=== PATIENT | female | born 1960 | race Caucasian/White ===

== ENCOUNTER 2020-07-14 09:09 | Inpatient (IN) | payer OTHER, SELFPAY ==
[2020-07-14] VITALS (9 sets, daily range): BP systolic 125–156; BP diastolic 63–88; PULSE 84–102; RESP 20–33; TEMP 36.6–37.4; O2SAT 90–97; BMI 40.2
--- NOTE | 2020-07-14 09:32 | XR_ITS ---
EXAMINATION: XR CHEST CLINICAL INFORMATION: Covid positive. Chest pain and shortness of breath. COMPARISON: Previous chest x-rays most recent November 2016 TECHNIQUE: Frontal view of the chest was obtained. FINDINGS: The lung volumes are low. The cardiac and mediastinal contours are unremarkable. There is bilateral airspace disease suggestive of a pneumonia, greatest in the peripheral right lung and left perihilar region and left lung base. There is no pleural effusion or pneumothorax. Visualized bony structures are unremarkable. XR/XR chest 1V IMPRESSION: Low lung volumes and bilateral airspace disease suggestive of pneumonia.
[2020-07-14] MEDS: 0.9 % Sodium Chloride 1,000 ML 999 ML IV (09:46)
[2020-07-14 09:54] LABS: MANUAL DIFF FLAG NO
[2020-07-14] MEDS: cefTRIAXone sodium 1 GM in 0.9 % Sodium Chloride 100 ML IV (09:55)
[2020-07-14 09:56] LABS: Basophils Percent Auto 0.1 % (0-2); Hematocrit 40.8 % (37-47); Hemoglobin 12.6 g/dl (12.0-16.0); Imm Gran Abs Auto 0.03 X10*3/uL (0.00-0.03); Imm Gran Pct Auto 0.4 % (0.0-0.4); Lymphocytes Absolute Auto 1.1 X10*3/uL (1.2-4.9); Lymphocytes Percent Auto 14.2 % (20-40); Mean Corpuscular HGB Conc 30.9 g/dl (31.0-35.0); Mean Platelet Volume 10.8 fL (9.4-12.3); Monocytes Absolute Auto 0.5 X10*3/uL (0.1-1.2); Monocytes Percent Auto 5.9 % (2-11); Neutrophils Absolute Auto 6.2 X10*3/uL (2.0-8.3); Neutrophils Percent Auto 79.4 % (45-73); Platelet Count 263 X10*3/uL (160-400); Red Blood Count 5.04 X10*6/uL (4.20-5.50); Red Cell Distribution Width 15.2 % (11.0-16.0); White Blood Count 7.8 X10*3/uL (4.8-10.8)
[2020-07-14 10:08] LABS: INTERNATIONAL NORM RATIO 1.2 (0.9-1.1); Prothrombin Time 13.8 SEC (10.8-13.0)
[2020-07-14 10:11] LABS: Partial Thromboplastin Time 26.1 SEC (24.1-38.0)
[2020-07-14] MEDS: Azithromycin 500 MG in 0.9 % Sodium Chloride 250 ML 125 MG IV (10:18)
[2020-07-14 10:21] LABS: Alanine Aminotransferase 34 U/L (0-31); Albumin Level 3.5 g/dL (3.5-5.0); Alkaline Phosphatase 72 U/L (39-117); Anion Gap 18 (12-20); Aspartate Amino Transferase 45 U/L (5-31); Bilirubin Total 0.4 mg/dL (0.0-1.0); Blood Urea Nitrogen 21 mg/dL (9-16); Calcium 8.1 mg/dL (8.4-10.2); Carbon Dioxide 31 mmol/L (22-29); Chloride 95 mmol/L (96-108); Creatinine Clr Calc Pharmacy 82.5; Estimated Glomerular Filt Rate > 60; Glucose Random 131 mg/dL (60-115); Lipase 42 U/L (8-78); Potassium 3.7 mmol/l (3.3-5.1); Sodium 140 mmol/L (135-145); Total Protein 7.5 g/dL (6.5-8.0)
[2020-07-14 10:40] LABS: Lactic Acid 1.4 mmol/L (0.5-2.0)
--- NOTE | 2020-07-14 10:59 | ED.GENADULT ---
HPI - General Adult General Chief complaint: Dyspnea Stated complaint: COVID+,WEAKNESS,CHILLS,FEVER Time Seen by Provider: 07/14/20 09:14 Source: patient Mode of arrival: ambulatory Limitations: no limitations History of Present Illness HPI narrative: 59-year-old female who is COVID-19 positive on 07/07/2020 presents to the emergency department for evaluation of shortness of breath, dyspnea on exertion and increased fatigue. The patient states that over the past 1-2 days she has had increased shortness of breath. The patient describes dyspnea on exertion at around 10 ft. She has had a cough which is productive of thick, yellow sputum with no blood in the sputum. She has had nausea with 2 episodes of vomiting per day for the past 2-3 days. She has had 3 loose diarrheal stools per day. She describes his stools as block without any blood in the stools. She states that she has had intermittent fever at home as well. The patient's O2 saturation on room air was 90% on 2 L O2 saturation was 96%. Patient's past medical history significant for diabetes mellitus, hypertension, hyperlipidemia and obesity. Related Data Allergies Allergy/AdvReac Type Severity Reaction Status Date / Time No Known Allergies Allergy Unverified 04/13/20 16:34 Review of Systems Review of Systems: Yes all other systems are reviewed and are negative Constitutional: Constitutional: Reports as per HPI Eyes: Eyes: Reports as per HPI ENT: Reports as per HPI Cardiovascular: Cardiovascular: Reports as per HPI Respiratory: Respiratory: Reports as per HPI Gastrointestinal: Gastrointestinal: Reports as per HPI Genitourinary: Genitourinary: Reports as per HPI Musculoskeletal: Musculoskeletal: Reports as per HPI Integumentary/Breasts: Skin/Breast: Reports as per HPI Neurologic: Reports as per HPI and Reports Abnormal speech present Psychiatric: Psychiatric: Reports as per HPI Allergic/Immunologic: Allergic/Immunologic: Reports as per HPI [facility] Past Medical History Attestation statement: The following information was validated with the patient. [facility] Narrative: The patient lives with her . She denies tobacco, alcohol and drug use. Social History Social History Smoked in Last 30 Days: No Use of substances other than those prescribed or required for medical reasons: No Advance Directives: No Advance Directives Information Provided: No Advance Directives on File: No Physical Exam Vital Signs: Vital Signs: Last Vital Signs Temp 99.3 F 07/14/20 10:19 Pulse 97 07/14/20 10:58 Resp 28 H 07/14/20 10:58 BP 156/88 H 07/14/20 10:58 Pulse Ox 96 07/14/20 10:58 Body Mass Index 40.2 Const: General: cooperative, diaphoretic, ill appearing and lethargic Nutritional Appearance: obese Orientation/consciousness: oriented to person, oriented to place and lethargic Limitations: no limitations HENMT: Head: Yes normal to inspection, Yes normocephalic and Yes atraumatic Ears: external ears normal General nose exam: Normal external nose present Face and sinus: Yes normal facial exam Mouth: Normal oral and palatal mucosa present Throat: Yes posterior oropharynx normal Eyes: General: appearance normal, both eyes and all related structures Alignment and Position: alignment normal Periorbital: periorbital findings normal Eyelids: Yes eyelids normal Conjunctivae: conjunctivae normal Sclerae: sclerae normal Pupils: Equal, round and reactive pupils present Direct Ophthalmoscopy: normal light reflex Neck: Neck: Yes normal visual inspection and Yes supple Thyroid: Thyroid normal Chest: Chest palpation & inspection: normal inspection of the chest and normal palpation of entire chest wall Resp: Effort & Inspection: normal respiratory effort and able to speak in complete sentences Auscultation: clear to auscultation bilaterally, no crackles, no rales and no rhonchi Cardio: Rate: regular rate Rhythm: regular rhythm Heart sounds: S1 normal heart sound present, S2 normal heart sound present and no murmurs GI: Inspection: Yes normal to inspection Palpation (GI): Soft to palpation, nontender and no guarding Auscultation: normal bowel sounds : General: Yes no CVA tenderness Back/Spine/Pelvis: Back: no CVA tenderness Cervical Spine: normal cervical lordosis Thoracic/Lumbar Spine: thoracic and lumbar spine normal to inspection Skin: General skin exam: no rashes or lesions noted Lesions: no lesions Rashes: no rashes Trauma: no lacerations or abrasions Neuro: General: oriented to person and oriented to place Cranial nerves: Yes CN's II-XII intact bilaterally and Yes Equal, round and reactive pupils present Cognition (Neuro): normal cognition Speech: Abnormal speech present Motor exam (neuro): 5/5 motor strength present throughout Extrem: General: Yes normal to inspection and Yes full ROM Psych: Appearance: grossly normal and well kempt Mental Status: mental status grossly normal Speech and movement: Normal speech and movement present Affect: normal affect Attitude: cooperative Thought process: Normal thought process present Thought content: Normal thought content present Insight: Good insight present (Psych) Judgement: Good judgement present (Psych) Course Course Course Narrative: 59-year-old female who is known COVID positive since 07/07/2020 who presents emergency department for evaluation of increasing shortness of breath increasing dyspnea on exertion, cough, nausea, vomiting and diarrhea. On presentation the patient was hypoxic with O2 saturations of 90% on room air with improvement of her O2 saturation on 2 L of oxygen via nasal cannula. The patient does appear to be ill and lethargic. She was however able to answer questions without difficulty. The patient's laboratory evaluation revealed a normal CBC. She had slight elevation in her AST and ALT an elevation in her glucose of 131. Chest x-ray is concerning for bilateral interstitial pneumonia. My impression is the patient has COVID pneumonia but she will be treated for possible bacterial pneumonia with ceftriaxone and azithromycin IV. I do not think the patient is septic at this point and given the fact that she has COVID-19 pneumonia, I do not think that she should a 30 milliliter/kilogram fluid bolus. I did order 1 L of normal saline IV for the patient. She was also ordered dexamethasone 10 mg IV. I did discuss the patient's presentation with the covering hospitalist the patient will be admitted to the intermediate care. Medical Decision Making Lab Data Result diagrams: 07/14/20 09:41 07/14/20 09:41 Labs: Lab Results 07/14/20 07/14/20 07/14/20 Range/Units 09:41 09:41 09:41 WBC 7.8 (4.8-10.8) X10*3/uL RBC 5.04 (4.20-5.50) X10*6/uL Hgb 12.6 (12.0-16.0) g/dl Hct 40.8 (37-47) % MCV 81.0 (80-98) fL MCH 25.0 L (27.0-33.0) pg MCHC 30.9 L (31.0-35.0) g/dl RDW 15.2 (11.0-16.0) % Plt Count 263 (160-400) X10*3/uL MPV 10.8 (9.4-12.3) fL Immature Gran % (Auto) 0.4 (0.0-0.4) % Neut % (Auto) 79.4 H (45-73) % Lymph % (Auto) 14.2 L (20-40) % [place] % (Auto) 5.9 (2-11) % Eos % (Auto) 0.0 (0-4) % Baso % (Auto) 0.1 (0-2) % Lymph # (Auto) 1.1 L (1.2-4.9) X10*3/uL [place] # (Auto) 0.5 (0.1-1.2) X10*3/uL Eos # (Auto) 0.0 (0.0-0.4) X10*3/uL Baso # (Auto) 0.0 (0.0-0.2) X10*3/uL Abs Immat Gran (auto) 0.03 (0.00-0.03) X10*3/uL Absolute Neuts (auto) 6.2 (2.0-8.3) X10*3/uL Absolute Nucleated RBC 0.000 (0.0-0.012) X10*3/uL Nucleated RBC % (auto) 0.0 (0.0-0.2) /100WBC PT 13.8 H (10.8-13.0) SEC INR 1.2 H (0.9-1.1) APTT 26.1 (24.1-38.0) SEC Sodium 140 (135-145) mmol/L Potassium 3.7 (3.3-5.1) mmol/l Chloride 95 L (96-108) mmol/L Carbon Dioxide 31 H (22-29) mmol/L Anion Gap 18 (12-20) BUN 21 H (9-16) mg/dL Creatinine 0.83 (0.5-1.4) mg/dL Estim Creat Clear Calc 82.5 Estimated GFR > 60 Random Glucose 131 H (60-115) mg/dL Lactic Acid (0.5-2.0) mmol/L Calcium 8.1 L (8.4-10.2) mg/dL Total Bilirubin 0.4 (0.0-1.0) mg/dL AST 45 H (5-31) U/L ALT 34 H (0-31) U/L Alkaline Phosphatase 72 (39-117) U/L Total Protein 7.5 (6.5-8.0) g/dL Albumin 3.5 (3.5-5.0) g/dL Lipase 42 (8-78) U/L Urine Color Urine Appearance Urine pH (5.0-8.0) Ur Specific [place] (1.005-1.025) Urine Protein (NEG-TRACE) MG/DL Urine Glucose (UA) (NEG) MG/DL Urine Ketones (NEG) MG/DL Urine Blood (NEG) Urine Nitrite (NEG) Ur Leukocyte Esterase (NEG) 07/14/20 07/14/20 Range/Units 09:59 Unknown WBC (4.8-10.8) X10*3/uL RBC (4.20-5.50) X10*6/uL Hgb (12.0-16.0) g/dl Hct (37-47) % MCV (80-98) fL MCH (27.0-33.0) pg MCHC (31.0-35.0) g/dl RDW (11.0-16.0) % Plt Count (160-400) X10*3/uL MPV (9.4-12.3) fL Immature Gran % (Auto) (0.0-0.4) % Neut % (Auto) (45-73) % Lymph % (Auto) (20-40) % [place] % (Auto) (2-11) % Eos % (Auto) (0-4) % Baso % (Auto) (0-2) % Lymph # (Auto) (1.2-4.9) X10*3/uL [place] # (Auto) (0.1-1.2) X10*3/uL Eos # (Auto) (0.0-0.4) X10*3/uL Baso # (Auto) (0.0-0.2) X10*3/uL Abs Immat Gran (auto) (0.00-0.03) X10*3/uL Absolute Neuts (auto) (2.0-8.3) X10*3/uL Absolute Nucleated RBC (0.0-0.012) X10*3/uL Nucleated RBC % (auto) (0.0-0.2) /100WBC PT (10.8-13.0) SEC INR (0.9-1.1) APTT (24.1-38.0) SEC Sodium (135-145) mmol/L Potassium (3.3-5.1) mmol/l Chloride (96-108) mmol/L Carbon Dioxide (22-29) mmol/L Anion Gap (12-20) BUN (9-16) mg/dL Creatinine (0.5-1.4) mg/dL Estim Creat Clear Calc Estimated GFR Random Glucose (60-115) mg/dL Lactic Acid 1.4 (0.5-2.0) mmol/L Calcium (8.4-10.2) mg/dL Total Bilirubin (0.0-1.0) mg/dL AST (5-31) U/L ALT (0-31) U/L Alkaline Phosphatase (39-117) U/L Total Protein (6.5-8.0) g/dL Albumin (3.5-5.0) g/dL Lipase (8-78) U/L Urine Color YELLOW Urine Appearance HAZY Urine pH 6.5 (5.0-8.0) Ur Specific [place] 1.015 (1.005-1.025) Urine Protein NEG (NEG-TRACE) MG/DL Urine Glucose (UA) NEG (NEG) MG/DL Urine Ketones NEG (NEG) MG/DL Urine Blood NEG (NEG) Urine Nitrite NEG (NEG) Ur Leukocyte Esterase NEG (NEG) Discharge Plan Discharge Clinical Impression: Pneumonia due to COVID-19 virus, Hypoxia Patient Disposition: Admitted As Inpatient
[2020-07-14 12:22] LABS: Glucose Urine UA NEG (NEG); Leukocyte Esterase Urine NEG (NEG); Nitrite Urine NEG (NEG); PH 6.5 (5.0-8.0); Specific Gravity - Urine 1.015 (1.005-1.025); Urine Blood NEG (NEG); Urine Ketones NEG (NEG); Urine Protein NEG (NEG-TRACE)
[2020-07-14 12:24] LABS: Appearance Urine HAZY; Color Urine YELLOW
[2020-07-14] MEDS: dexAMETHasone sod phosphate 4 MG/ML VIAL 10 MG IVPUSH (12:38)
--- NOTE | 2020-07-14 12:48 | PC.NURSE ---
pt is alert, oriented. She states she works as a [employer] and is normally active. Pt has been feeling weak today, aslso short of breath with activity. She has been using an in room commode in ER, ambulating to makes her SOB. Pt has no skin problems, no wounds or other issues. Also denies HX of falls. She awaits admission.
[2020-07-14 13:07] LABS: C Reactive Protein 6.77 mg/dL (< or = 0.50); Lactate Dehydrogenase 478 U/L (122-220)
[2020-07-14 13:12] LABS: D Dimer 809 NG/ML
[2020-07-14 13:23] LABS: Ferritin 1228 ng/mL (10-250)
--- NOTE | 2020-07-14 13:35 | PM.IMHP ---
History of Present Illness Date of Service: 07/14/20 <TARUN Harris - Last Filed: 07/14/20 13:46> Chief Complaint: Shortness of breath <TARUN Harris - Last Filed: 07/14/20 13:46> This is a 59-year-old female who presented to the emergency department today with shortness of breath. She was diagnosed with COVID-19 on July 07. She has had increasing shortness of breath and dyspnea on exertion since yesterday as well as associated cough. She also reports headache and body aches. She denies any sick contacts. In the emergency department she was hypoxic with oxygen saturation of 90% on room air. She is currently on 3 L of oxygen saturating 92%. Chest x-ray showed bilateral airspace disease. Inflammatory markers were elevated. She was given a dose of IV antibiotic and IV dexamethasone the decision was reached to admit her for further management. <TARUN Harris - Last Filed: 07/14/20 13:46> Review of Systems Review of Systems: Yes all other systems are reviewed and are negative <TARUN Harris - Last Filed: 07/14/20 13:46> Constitutional: Constitutional: Denies chills and Denies fever(s) <TARUN Harris - Last Filed: 07/14/20 13:46> Cardiovascular: Cardiovascular: Denies chest pain, Reports dyspnea and Reports dyspnea on exertion <TARUN Harris - Last Filed: 07/14/20 13:46> Respiratory: Respiratory: Reports dyspnea and Reports dyspnea on exertion <TARUN Harris Last Filed: 07/14/20 13:46> Gastrointestinal: Gastrointestinal: Denies abdominal pain <TARUN Harris - Last Filed: 07/14/20 13:46> Neurologic: Reports as per HPI and Reports Abnormal speech present <TARUN Harris - Last Filed: 07/14/20 13:46> [facility] Medical History: Medical History Diabetes Hyperlipidemia Hypertension Morbid obesity <TARUN Harris Last Filed: 07/14/20 13:46> Functional capacity: independent ambulation <TARUN Harris - Last Filed: 07/14/20 13:46> Pertinent family history: No history of coronary artery disease <TARUN Harris - Last Filed: 07/14/20 13:46> Family history: reviewed and not pertinent <TARUN Harris - Last Filed: 07/14/20 13:46> Social History: Social History Household Members: Spouse Housing: House Do you presently have visiting nurse or other home services: No Alcohol intake: never Smoking Status: Never smoker Smoked in Last 30 Days: No Patient Interested in Nicotine Replacement: No Patient Given Instructions on How to Stop Smoking: No Second Hand Smoke Exposure: No Use of substances other than those prescribed or required for medical reasons: No Currently Displaying Signs/Symptoms of Drug Intoxication Withdrawal: No Have you been hit, kicked, punched, or otherwise hurt by someone within the past year? If so, by whom?: No Do you feel safe in your current relationship?: Yes Is there a partner from a previous relationship who is making you feel unsafe now?: No Are you made to feel afraid or neglected: No Advance Directives: No Advance Directives Information Provided: No Advance Directives on File: No Do you have thoughts of harming others: None Do you have a plan to hurt others: No Plan Recently lost weight without trying: No <TARUN Harris - Last Filed: 07/14/20 13:46> Meds Allergies/Adverse reactions: Allergies Allergy/AdvReac Type Severity Reaction Status Date / Time No Known Allergies Allergy Unverified 04/13/20 16:34 <TARUN Harris - Last Filed: 07/14/20 13:46> Home medications: Home Medications Medication Instructions Recorded Confirmed Type hydrochlorothiazide 25 mg PO DAILY 07/14/20 07/14/20 History lisinopril 5 mg PO DAILY 07/14/20 07/14/20 History omeprazole [Prilosec] 20 mg PO DAILY 07/14/20 07/14/20 History ondansetron [Zofran ODT] 4 mg PO Q8H PRN 07/14/20 07/14/20 History simvastatin 20 mg PO BEDTIME 07/14/20 07/14/20 History <TARUN Harris - Last Filed: 07/14/20 13:46> Physical Exam Vital Signs and Narrative: Vital Signs: Last Vital Signs Temp 99.3 F 07/14/20 10:19 Pulse 98 07/14/20 12:38 Resp 33 H 07/14/20 12:38 BP 139/82 07/14/20 12:38 Pulse Ox 93 07/14/20 12:38 Body Mass Index 40.2 <TARUN Harris - Last Filed: 07/14/20 13:46> Const: General: alert and awake <TARUN Harris - Last Filed: 07/14/20 13:46> Nutritional Appearance: obese <TARUN Harris - Last Filed: 07/14/20 13:46> Orientation/consciousness: patient oriented x3 <TARUN Harris - Last Filed: 07/14/20 13:46> HENMT: Head: Yes normocephalic and Yes atraumatic <TARUN Harris - Last Filed: 07/14/20 13:46> Eyes: Sclerae: sclerae normal <TARUN Harris - Last Filed: 07/14/20 13:46> Chest: Chest palpation & inspection: normal inspection of the chest <TARUN Harris - Last Filed: 07/14/20 13:46> Resp: Effort & Inspection: labored and tachypneic <TARUN Harris - Last Filed: 07/14/20 13:46> Cardio: Rate: regular rate <TARUN Harris - Last Filed: 07/14/20 13:46> Rhythm: regular rhythm <TARUN Harris - Last Filed: 07/14/20 13:46> GI: Palpation (GI): Soft to palpation and nontender <TARUN Harris - Last Filed: 07/14/20 13:46> Skin: General skin exam: no rashes or lesions noted <TARUN Harris - Last Filed: 07/14/20 13:46> Neuro: General: patient oriented x3 <TARUN Harris - Last Filed: 07/14/20 13:46> Cranial nerves: Yes CN's II-XII intact bilaterally and Yes Bilaterally intact EOM present <TARUN Harris - Last Filed: 07/14/20 13:46> Speech: Abnormal speech present <TARUN Harris - Last Filed: 07/14/20 13:46> Extrem: General: Yes normal to inspection <TARUN Harris - Last Filed: 07/14/20 13:46> Results Labs CBC and Chem 7: : 07/16/20 08:21 07/16/20 08:21 <TARUN Harris - Last Filed: 07/14/20 13:46> Labs: Laboratory Results - last 24 hr 07/14/20 07/14/20 07/14/20 09:41 09:41 09:41 MCV 81.0 MCH 25.0 L MCHC 30.9 L RDW 15.2 Plt Count 263 MPV 10.8 Immature Gran % (Auto) 0.4 Neut % (Auto) 79.4 H Lymph % (Auto) 14.2 L [place] % (Auto) 5.9 Eos % (Auto) 0.0 Baso % (Auto) 0.1 Lymph # (Auto) 1.1 L [place] # (Auto) 0.5 Eos # (Auto) 0.0 Baso # (Auto) 0.0 Abs Immat Gran (auto) 0.03 Absolute Neuts (auto) 6.2 Absolute Nucleated RBC 0.000 Nucleated RBC % (auto) 0.0 PT 13.8 H INR 1.2 H APTT 26.1 D-Dimer 809 Anion Gap 18 Estim Creat Clear Calc 82.5 Estimated GFR > 60 Random Glucose 131 H Lactic Acid Calcium 8.1 L Ferritin 1228 H Total Bilirubin 0.4 AST 45 H ALT 34 H Alkaline Phosphatase 72 Lactate Dehydrogenase 478 H C-Reactive Protein 6.77 H Total Protein 7.5 Albumin 3.5 Lipase 42 Urine Color Urine Appearance Urine pH Ur Specific [place] Urine Protein Urine Glucose (UA) Urine Ketones Urine Blood Urine Nitrite Ur Leukocyte Esterase 07/14/20 07/14/20 09:59 Unknown MCV MCH MCHC RDW Plt Count MPV Immature Gran % (Auto) Neut % (Auto) Lymph % (Auto) [place] % (Auto) Eos % (Auto) Baso % (Auto) Lymph # (Auto) [place] # (Auto) Eos # (Auto) Baso # (Auto) Abs Immat Gran (auto) Absolute Neuts (auto) Absolute Nucleated RBC Nucleated RBC % (auto) PT INR APTT D-Dimer Anion Gap Estim Creat Clear Calc Estimated GFR Random Glucose Lactic Acid 1.4 Calcium Ferritin Total Bilirubin AST ALT Alkaline Phosphatase Lactate Dehydrogenase C-Reactive Protein Total Protein Albumin Lipase Urine Color YELLOW Urine Appearance HAZY Urine pH 6.5 Ur Specific [place] 1.015 Urine Protein NEG Urine Glucose (UA) NEG Urine Ketones NEG Urine Blood NEG Urine Nitrite NEG Ur Leukocyte Esterase NEG <TARUN Harris - Last Filed: 07/14/20 13:46> Imaging Radiologist's Impressions: Impressions Chest X-Ray 07/14/20 09:32 IMPRESSION: Low lung volumes and bilateral airspace disease suggestive of pneumonia. <TARUN Harris - Last Filed: 07/14/20 13:46> Assessment and Plan (1) Pneumonia due to COVID-19 virus: Problem details: Recent hypoxia as well as recent onset of COVID She has increasing oxygen requirements with oxygen now at 3 liters She has COVID pneumonia There are no signs of thromboembolism or opportunistic infection <TARUN Harris - Last Filed: 07/14/20 13:46> Status: Acute <TARUN Harris - Last Filed: 07/14/20 13:46> This is a 59-year-old female with a history of hypertension, hyperlipidemia, diabetes, recent diagnosis of coronavirus who presents to the emergency department with shortness of breath found to be Acute respiratory failure with hypoxia COVID-19 pneumonia Viral sepsis -IV dexamethasone -id consult -Supplemental oxygen as needed Morbid obesity BMI 40.2 Likely contributing to worsening respiratory status Diabetes Newly diagnosed not yet placed on medication Will check hemoglobin A1c ADA diet POC sugars Hypertension Continue lisinopril, HCTZ Dyslipidemia Continue statin DVT prophylaxis- Code status-full code This case was discussed with Dr. Mancini <TARUN Harris - Last Filed: 07/14/20 13:46>
[2020-07-14 14:23] LABS: Estimated Average Glucose 151 mg/dL; Hemoglobin A1c % 6.9 %
[2020-07-14 15:03] LABS: COVID-19 Test Positive (Negative); IDNOW Serial# 9DD0AD1C
[2020-07-14] MEDS: Enoxaparin Sodium 40 MG/0.4 ML SYRINGE SUBCUT (15:41)
[2020-07-14] MEDS: 0.9 % Sodium Chloride Flush 3 ML SYRINGE IVFLUSH (16:00)
--- NOTE | 2020-07-14 16:38 | PM.EVENT ---
Event Note Date of Service: 07/14/20 Event Note: 59 y o f presented with sob and fatigue bodyache for last couple of days found to covid positive and pneumonia patient seen and examined at bedside on exam appeared tired lungs basilar rales, abdomen soft CVS rate and rhythm regular admitted for acute hypoxic respiratory failure secondary to COVID pneumonia will start on dexamethasone, oxygen supplementation and supportive management, will get ID input Patient seen and examined with the midlevel agree with H&P assessment and plan Patient seen and examined with the midlevel agree with H&P assessment and plan
[2020-07-14 17:02] LABS: Glucose, Whole Blood 171 mg/dL (60-115)
[2020-07-14] MEDS: Atorvastatin Calcium 10 MG TABLET PO (20:05)
[2020-07-14 21:56] LABS: Glucose, Whole Blood 164 mg/dL (60-115)
[2020-07-14] MEDS: guaiFENesin 100 MG/5 ML LIQUID PO (23:52)
[2020-07-15] MEDS: 0.9 % Sodium Chloride Flush 3 ML SYRINGE IVFLUSH ×4 (00:46→21:26)
[2020-07-15 04:00] VITALS: BP 118/60; PULSE 76; RESP 24; TEMP 36.7; O2SAT 98
[2020-07-15 07:38] VITALS: BP 132/71; PULSE 77; RESP 20; TEMP 36.6; O2SAT 97
[2020-07-15 07:51] LABS: Glucose, Whole Blood 140 mg/dL (60-115)
[2020-07-15] MEDS: hydroCHLOROthiazide 25 MG TABLET PO (10:31)
[2020-07-15] MEDS: Omeprazole 20 MG CAPSULE.DR PO (10:31)
[2020-07-15] MEDS: dexAMETHasone sod phosphate 4 MG/ML VIAL 6 MG IVPUSH (10:31)
[2020-07-15 10:32] VITALS: BP 119/59; PULSE 88
[2020-07-15] MEDS: lisinopriL 5 MG TABLET PO (10:32)
[2020-07-15 11:12] VITALS: BP 113/61; PULSE 85; RESP 20; TEMP 36.8; O2SAT 92
[2020-07-15 11:19] LABS: Glucose, Whole Blood 147 mg/dL (60-115)
--- NOTE | 2020-07-15 13:18 | HO.PM.IMPN ---
Subjective Subjective Date of Service: 07/15/20 Interval History: Patient seen and examined at bedside patient reported feeling tired requiring 5 L of oxygen Constitutional Constitutional: Reports as per HPI, Denies chills and Denies fever(s) Eyes Eyes: Reports as per HPI ENT Ears, Nose, Mouth, and Throat: Reports as per HPI Cardiovascular Cardiovascular: Reports as per HPI, Denies chest pain, Reports dyspnea and Reports dyspnea on exertion Respiratory Respiratory: Reports as per HPI, Reports dyspnea and Reports dyspnea on exertion Gastrointestinal Gastrointestinal: Reports as per HPI and Denies abdominal pain Musculoskeletal Musculoskeletal: Reports as per HPI Integumentary/Breasts Skin/Breast: Reports as per HPI Neurologic Neurologic: Reports as per HPI and Reports Abnormal speech present Psychiatric Psychiatric: Reports as per HPI Allergic/Immunologic Allergic/Immunologic: Reports as per HPI Physical Exam Vital Signs: Vital Signs: Last Vital Signs Temp 98.2 F 07/15/20 11:12 Pulse 85 07/15/20 11:12 Resp 20 07/15/20 11:12 BP 113/61 07/15/20 11:12 Pulse Ox 92 07/15/20 11:12 Body Mass Index 40.2 Const: General: alert and awake Nutritional Appearance: obese Orientation/consciousness: patient oriented x3 HENMT: Head: Yes normocephalic and Yes atraumatic Eyes: Sclerae: sclerae normal Chest: Chest palpation & inspection: normal inspection of the chest Resp: Effort & Inspection: labored and tachypneic Cardio: Rate: regular rate Rhythm: regular rhythm GI: Palpation (GI): Soft to palpation and nontender Skin: General skin exam: no rashes or lesions noted Neuro: General: patient oriented x3 Cranial nerves: Yes CN's II-XII intact bilaterally and Yes Bilaterally intact EOM present Speech: Abnormal speech present Extrem: General: Yes normal to inspection Objective Data Current Medications Generic Name Dose Route Start Last Admin Trade Name Freq PRN Reason Stop Dose Admin Acetaminophen 650 mg 07/14/20 14:25 Acetaminophen 325 Mg Tablet PO Q6H PRN Pain, Mild (Pain Scale 1-3) Atorvastatin Calcium 10 mg 07/14/20 21:00 07/14/20 20:05 Atorvastatin Calcium 10 Mg Tablet PO 10 mg BEDTIME RENÉ Administration Dexamethasone Sodium Phosphate 6 mg 07/15/20 09:00 07/15/20 10:31 Dexamethasone Sod Phosphate 4 Mg/Ml Vial IVPUSH 6 mg DAILY RENÉ Administration Docusate Sodium 100 mg 07/14/20 14:25 Docusate Sodium 100 Mg Capsule PO DAILY PRN Constipation Enoxaparin Sodium 40 mg 07/14/20 15:00 07/14/20 15:41 Enoxaparin Sodium 40 Mg/0.4 Ml Syringe SUBCUT 40 mg Q24H RENÉ Administration Hydrochlorothiazide 25 mg 07/15/20 09:00 07/15/20 10:31 Hydrochlorothiazide 25 Mg Tablet PO 25 mg DAILY [facility] Administration Protocol Insulin Human Lispro 0 unit 07/15/20 07:30 07/15/20 12:41 Insulin Lispro 100 Unit/Ml 3 Ml Vial SUBCUT 07/15/20 22:03 Not Given QIDACHS [facility] Protocol Lisinopril 5 mg 07/15/20 09:00 07/15/20 10:32 Lisinopril 5 Mg Tablet PO 5 mg DAILY [facility] Administration Protocol Omeprazole 20 mg 07/15/20 09:00 07/15/20 10:31 Omeprazole 20 Mg Capsule.Dr PO 20 mg DAILY RENÉ Administration Ondansetron HCl 4 mg 07/14/20 14:25 Ondansetron Hcl 4 Mg/2 Ml Vial IVPUSH Q8H PRN Nausea and Vomiting Pharmacy Consult 1 each 07/14/20 12:51 Consult Rx Perform Med Rec MISCELLANE ONCE PRN Consult order Sodium Chloride 3 ml 07/14/20 16:00 07/15/20 10:31 0.9 % Sodium Chloride Flush 3 Ml Syringe IVFLUSH 3 ml QSHIFT [facility] Administration Labs CBC & Chem 7: 07/14/20 09:41 07/14/20 09:41 Microbiology Microbiology Results: Microbiology 07/14/20 09:59 Blood - Venous Blood Culture - Preliminary No growth after 24 hours. 07/14/20 09:42 Blood - Venous Blood Culture - Preliminary No growth after 24 hours. Assessment and Plan (1) Pneumonia due to COVID-19 virus: Status: Acute Assessment and Plan: 59-year-old female with a history of hypertension, hyperlipidemia, diabetes, recent diagnosis of coronavirus who presents to the emergency department with shortness of breath found to be hypoxic Acute respiratory failure with hypoxia COVID-19 pneumonia Viral sepsis Continue-IV dexamethasone id consult pending continueSupplemental oxygen as needed Morbid obesity BMI 40.2 Likely contributing to worsening respiratory status Diabetes Newly diagnosed not yet placed on medication Hemoglobin A1c 6.9 ADA diet POC sugars Hypertension Continue lisinopril, HCTZ Dyslipidemia Continue statin DVT prophylaxis- Lovenox
[2020-07-15 15:15] VITALS: BP 114/67; PULSE 80; RESP 19; TEMP 36; O2SAT 94
[2020-07-15 16:26] LABS: Glucose, Whole Blood 178 mg/dL (60-115)
[2020-07-15] MEDS: Insulin Lispro 100 UNIT/ML 3 ML VIAL SUBCUT (17:56)
[2020-07-15] MEDS: Enoxaparin Sodium 40 MG/0.4 ML SYRINGE SUBCUT (17:57)
[2020-07-15 18:39] LABS: MANUAL DIFF FLAG NO
[2020-07-15 18:40] LABS: Hematocrit 38.3 % (37-47); Imm Gran Abs Auto 0.05 X10*3/uL (0.00-0.03); Imm Gran Pct Auto 0.7 % (0.0-0.4); Lymphocytes Absolute Auto 0.9 X10*3/uL (1.2-4.9); Lymphocytes Percent Auto 11.9 % (20-40); Mean Corpuscular HGB Conc 31.3 g/dl (31.0-35.0); Mean Corpuscular Hemoglobin 25.4 pg (27.0-33.0); Mean Platelet Volume 10.6 fL (9.4-12.3); Monocytes Absolute Auto 0.3 X10*3/uL (0.1-1.2); Monocytes Percent Auto 3.8 % (2-11); Neutrophils Percent Auto 83.6 % (45-73); Platelet Count 341 X10*3/uL (160-400); Red Blood Count 4.73 X10*6/uL (4.20-5.50); Red Cell Distribution Width 14.9 % (11.0-16.0); White Blood Count 7.2 X10*3/uL (4.8-10.8)
[2020-07-15 18:44] LABS: INTERNATIONAL NORM RATIO 1.1 (0.9-1.1)
[2020-07-15 18:47] LABS: Partial Thromboplastin Time 28.1 SEC (24.1-38.0)
[2020-07-15 19:04] LABS: Alanine Aminotransferase 34 U/L (0-31); Albumin Level 3.6 g/dL (3.5-5.0); Alkaline Phosphatase 68 U/L (39-117); Anion Gap 12 (12-20); Aspartate Amino Transferase 36 U/L (5-31); Bilirubin Direct 0.2 mg/dL (0.0-0.5); Bilirubin Total 0.4 mg/dL (0.0-1.0); Blood Urea Nitrogen 19 mg/dL (9-16); Carbon Dioxide 34 mmol/L (22-29); Chloride 97 mmol/L (96-108); Creatinine Clr Calc Pharmacy 86.8; Estimated Glomerular Filt Rate > 60; Potassium 3.6 mmol/l (3.3-5.1); Sodium 139 mmol/L (135-145); Total Protein 7.2 g/dL (6.5-8.0)
[2020-07-15 20:00] VITALS: BP 128/63; PULSE 92; RESP 16; TEMP 37.2
[2020-07-15 21:19] LABS: Glucose, Whole Blood 144 mg/dL (60-115)
[2020-07-15] MEDS: Atorvastatin Calcium 10 MG TABLET PO (21:25)
--- NOTE | 2020-07-15 21:27 | W.PM.IDCN ---
History of Present Illness Data of Consult Service Date: 07/15/20 Requesting physician: Patricio Mancini Primary Care Provider: Debora Escobar HPI Reason for consult: COVID She tested positive for COVID on 07/07 after 9 days of symptoms Her is positive She had fever and chills for 9 days and then shortness of breath for 2 days. She has some yellow sputum and diarrhea. Review of Systems Constitutional: Constitutional: Reports body ache(s) and Reports excessive sweating Eyes: Eyes: Reports no additional eye complaints Respiratory: Respiratory: Reports cough Gastrointestinal: Gastrointestinal: Reports diarrhea Neurologic: Reports as per HPI and Reports Abnormal speech present Endocrine: Endocrine: Reports excessive sweating PMFSH Past Medical History Medical History Diabetes Hyperlipidemia Hypertension Morbid obesity Functional capacity: independent ambulation Family History Family history: reviewed and not pertinent Social History Social History Household Members: Spouse Housing: House Do you presently have visiting nurse or other home services: No Alcohol intake: never Smoking Status: Never smoker Smoked in Last 30 Days: No Patient Interested in Nicotine Replacement: No Patient Given Instructions on How to Stop Smoking: No Second Hand Smoke Exposure: No Use of substances other than those prescribed or required for medical reasons: No Currently Displaying Signs/Symptoms of Drug Intoxication Withdrawal: No Have you been hit, kicked, punched, or otherwise hurt by someone within the past year? If so, by whom?: No Do you feel safe in your current relationship?: Yes Is there a partner from a previous relationship who is making you feel unsafe now?: No Are you made to feel afraid or neglected: No Advance Directives: No Advance Directives Information Provided: No Advance Directives on File: No Do you have thoughts of harming others: None Do you have a plan to hurt others: No Plan Recently lost weight without trying: No Meds Allergies Allergy/AdvReac Type Severity Reaction Status Date / Time No Known Allergies Allergy Unverified 04/13/20 16:34 Home Medications Medication Instructions Recorded Confirmed Type hydrochlorothiazide 25 mg PO DAILY 07/14/20 07/14/20 History lisinopril 5 mg PO DAILY 07/14/20 07/14/20 History omeprazole [Prilosec] 20 mg PO DAILY 07/14/20 07/14/20 History ondansetron [Zofran ODT] 4 mg PO Q8H PRN 07/14/20 07/14/20 History simvastatin 20 mg PO BEDTIME 07/14/20 07/14/20 History Physical Exam Vital Signs: Vital Signs: Last Vital Signs Temp 99.0 F 07/15/20 20:00 Pulse 92 07/15/20 20:00 Resp 16 07/15/20 20:00 BP 128/63 07/15/20 20:00 Pulse Ox 94 07/15/20 15:15 Body Mass Index 40.2 Const: General: cooperative HENMT: Head: Yes normal to inspection Eyes: General: appearance normal, both eyes and all related structures Resp: Effort & Inspection: labored Cardio: Rate: regular rate Rhythm: regular rhythm GI: Palpation (GI): nontender Skin: General skin exam: no rashes or lesions noted Neuro: Speech: Abnormal speech present Assessment and Plan (1) Pneumonia due to COVID-19 virus: Problem details: Recent hypoxia as well as recent onset of COVID She has increasing oxygen requirements with oxygen now at 3 liters She has COVID pneumonia There are no signs of thromboembolism or opportunistic infection Status: Acute Remdesivir 200 mg and then 100 mg daily for 4 days, A1 recommendation Dexamethasone 6 mg daily for 10 days Supportive oxygen (2) Hypoxia: Status: Acute Results Labs CBC & Chem 7: 07/15/20 18:20 07/15/20 18:20 Labs: Short CBC 07/15/20 Range/Units 18:20 WBC 7.2 (4.8-10.8) X10*3/uL Hgb 12.0 (12.0-16.0) g/dl Hct 38.3 (37-47) % Plt Count 341 D (160-400) X10*3/uL BMP 07/15/20 18:20 Sodium 139 Potassium 3.6 Chloride 97 Carbon Dioxide 34 H BUN 19 H Creatinine 0.79 Liver Function 07/15/20 Range/Units 18:20 Total Bilirubin 0.4 (0.0-1.0) mg/dL Direct Bilirubin 0.2 (0.0-0.5) mg/dL AST 36 H (5-31) U/L ALT 34 H (0-31) U/L Alkaline Phosphatase 68 (39-117) U/L Albumin 3.6 (3.5-5.0) g/dL Microbiology Microbiology Results: Microbiology 07/14/20 09:59 Blood - Venous Blood Culture - Preliminary No growth after 24 hours. 07/14/20 09:42 Blood - Venous Blood Culture - Preliminary No growth after 24 hours.
[2020-07-15] MEDS: Remdesivir 200 MG in 0.9 % Sodium Chloride 210 ML 105 MG IV (22:47)
[2020-07-16] VITALS (8 sets, daily range): BP systolic 118–140; BP diastolic 58–83; PULSE 69–82; RESP 18–20; TEMP 35.6–37.2; O2SAT 91–96
[2020-07-16 07:47] LABS: Glucose, Whole Blood 129 mg/dL (60-115)
[2020-07-16 08:42] LABS: Hematocrit 38.8 % (37-47); Hemoglobin 12.1 g/dl (12.0-16.0); Imm Gran Abs Auto 0.06 X10*3/uL (0.00-0.03); Imm Gran Pct Auto 0.9 % (0.0-0.4); Lymphocytes Absolute Auto 1.6 X10*3/uL (1.2-4.9); Lymphocytes Percent Auto 23.3 % (20-40); MANUAL DIFF FLAG SCAN; Mean Corpuscular HGB Conc 31.2 g/dl (31.0-35.0); Mean Corpuscular Hemoglobin 25.1 pg (27.0-33.0); Mean Corpuscular Volume 80.3 fL (80-98); Mean Platelet Volume 10.3 fL (9.4-12.3); Monocytes Absolute Auto 0.6 X10*3/uL (0.1-1.2); Monocytes Percent Auto 9.3 % (2-11); Neutrophils Absolute Auto 4.6 X10*3/uL (2.0-8.3); Neutrophils Percent Auto 66.5 % (45-73); Platelet Count 373 X10*3/uL (160-400); Red Blood Count 4.83 X10*6/uL (4.20-5.50); Red Cell Distribution Width 14.7 % (11.0-16.0); SCAN SMEAR FLAG 1; White Blood Count 6.9 X10*3/uL (4.8-10.8)
[2020-07-16 08:49] LABS: INTERNATIONAL NORM RATIO 1.1 (0.9-1.1)
[2020-07-16 08:52] LABS: Partial Thromboplastin Time 26.6 SEC (24.1-38.0)
[2020-07-16] MEDS: lisinopriL 5 MG TABLET PO (09:10)
[2020-07-16] MEDS: hydroCHLOROthiazide 25 MG TABLET PO (09:10)
[2020-07-16] MEDS: dexAMETHasone sod phosphate 4 MG/ML VIAL 6 MG IVPUSH (09:10)
[2020-07-16] MEDS: 0.9 % Sodium Chloride Flush 3 ML SYRINGE IVFLUSH ×3 (09:10→22:09)
[2020-07-16] MEDS: Omeprazole 20 MG CAPSULE.DR PO (09:11)
[2020-07-16 09:13] LABS: SLIDE REVIEW VERIFIED
[2020-07-16 09:21] LABS: Alanine Aminotransferase 31 U/L (0-31); Albumin Level 3.5 g/dL (3.5-5.0); Alkaline Phosphatase 63 U/L (39-117); Aspartate Amino Transferase 31 U/L (5-31); Bilirubin Direct 0.2 mg/dL (0.0-0.5); Bilirubin Total 0.4 mg/dL (0.0-1.0); Total Protein 7.2 g/dL (6.5-8.0)
[2020-07-16 09:24] LABS: Alanine Aminotransferase 32 U/L (0-31); Albumin Level 3.5 g/dL (3.5-5.0); Alkaline Phosphatase 64 U/L (39-117); Anion Gap 14 (12-20); Aspartate Amino Transferase 31 U/L (5-31); Bilirubin Direct 0.2 mg/dL (0.0-0.5); Bilirubin Total 0.4 mg/dL (0.0-1.0); Blood Urea Nitrogen 23 mg/dL (9-16); Carbon Dioxide 31 mmol/L (22-29); Chloride 99 mmol/L (96-108); Creatinine Clr Calc Pharmacy 97.9; Estimated Glomerular Filt Rate > 60; Potassium 3.3 mmol/l (3.3-5.1); Sodium 141 mmol/L (135-145); Total Protein 7.2 g/dL (6.5-8.0)
--- NOTE | 2020-07-16 11:43 | PC.NURSE ---
DAUGHTER RAGINI (ALSO GOES BY INDER) UPDATED ON PTS STATUS. NEW CONTACT NUMBER FOR RAGINI: [phone].
[2020-07-16 12:00] LABS: Glucose, Whole Blood 145 mg/dL (60-115)
--- NOTE | 2020-07-16 12:27 | HO.PM.IMPN ---
Subjective Subjective Date of Service: 07/16/20 Interval History: Patient seen and examined at bedside patient reported feeling tired and weakness Constitutional Constitutional: Reports as per HPI, Denies chills and Denies fever(s) Eyes Eyes: Reports as per HPI ENT Ears, Nose, Mouth, and Throat: Reports as per HPI Cardiovascular Cardiovascular: Reports as per HPI, Denies chest pain, Reports dyspnea and Reports dyspnea on exertion Respiratory Respiratory: Reports as per HPI, Reports dyspnea and Reports dyspnea on exertion Gastrointestinal Gastrointestinal: Reports as per HPI and Denies abdominal pain Musculoskeletal Musculoskeletal: Reports as per HPI Integumentary/Breasts Skin/Breast: Reports as per HPI Neurologic Neurologic: Reports as per HPI and Reports Abnormal speech present Psychiatric Psychiatric: Reports as per HPI Allergic/Immunologic Allergic/Immunologic: Reports as per HPI Physical Exam Vital Signs: Vital Signs: Last Vital Signs Temp 97.8 F 07/16/20 11:46 Pulse 74 07/16/20 11:46 Resp 18 07/16/20 11:46 BP 130/70 07/16/20 11:46 Pulse Ox 91 L 07/16/20 11:46 Body Mass Index 40.2 Const: General: alert and awake Nutritional Appearance: obese Orientation/consciousness: patient oriented x3 HENMT: Head: Yes normocephalic and Yes atraumatic Eyes: Sclerae: sclerae normal Chest: Chest palpation & inspection: normal inspection of the chest Resp: Effort & Inspection: labored and tachypneic Cardio: Rate: regular rate Rhythm: regular rhythm GI: Palpation (GI): Soft to palpation and nontender Skin: General skin exam: no rashes or lesions noted Neuro: General: patient oriented x3 Cranial nerves: Yes CN's II-XII intact bilaterally and Yes Bilaterally intact EOM present Speech: Abnormal speech present Extrem: General: Yes normal to inspection Objective Data Current Medications Generic Name Dose Route Start Last Admin Trade Name Freq PRN Reason Stop Dose Admin Acetaminophen 650 mg 07/14/20 14:25 Acetaminophen 325 Mg Tablet PO Q6H PRN Pain, Mild (Pain Scale 1-3) Atorvastatin Calcium 10 mg 07/14/20 21:00 07/15/20 21:25 Atorvastatin Calcium 10 Mg Tablet PO 10 mg BEDTIME RENÉ Administration Dexamethasone Sodium Phosphate 6 mg 07/15/20 09:00 07/16/20 09:10 Dexamethasone Sod Phosphate 4 Mg/Ml Vial IVPUSH 6 mg DAILY RENÉ Administration Docusate Sodium 100 mg 07/14/20 14:25 Docusate Sodium 100 Mg Capsule PO DAILY PRN Constipation Enoxaparin Sodium 40 mg 07/14/20 15:00 07/15/20 17:57 Enoxaparin Sodium 40 Mg/0.4 Ml Syringe SUBCUT 40 mg Q24H RENÉ Administration Hydrochlorothiazide 25 mg 07/15/20 09:00 07/16/20 09:10 Hydrochlorothiazide 25 Mg Tablet PO 25 mg DAILY [facility] Administration Protocol Remdesivir 100 mg/ Sodium 230 mls @ 115 mls/hr 07/16/20 22:00 Chloride IV 07/19/20 23:59 Q24H [facility] Lisinopril 5 mg 07/15/20 09:00 07/16/20 09:10 Lisinopril 5 Mg Tablet PO 5 mg DAILY [facility] Administration Protocol Omeprazole 20 mg 07/15/20 09:00 07/16/20 09:11 Omeprazole 20 Mg Capsule. PO 20 mg DAILY RENÉ Administration Ondansetron HCl 4 mg 07/14/20 14:25 Ondansetron Hcl 4 Mg/2 Ml Vial IVPUSH Q8H PRN Nausea and Vomiting Pharmacy Consult 1 each 07/14/20 12:51 Consult Rx Perform Med Rec MISCELLANE ONCE PRN Consult order Sodium Chloride 3 ml 07/14/20 16:00 07/16/20 09:10 0.9 % Sodium Chloride Flush 3 Ml Syringe IVFLUSH 3 ml QSHIFT [facility] Administration Labs CBC & Chem 7: 07/16/20 08:21 07/16/20 08:21 Microbiology Microbiology Results: Microbiology 07/14/20 09:59 Blood - Venous Blood Culture - Preliminary No growth after 48 hours. 07/14/20 09:42 Blood - Venous Blood Culture - Preliminary No growth after 48 hours. Assessment and Plan (1) Pneumonia due to COVID-19 virus: Problem details: Recent hypoxia as well as recent onset of COVID She has increasing oxygen requirements with oxygen now at 3 liters She has COVID pneumonia There are no signs of thromboembolism or opportunistic infection Status: Acute Assessment and Plan: 59-year-old female with a history of hypertension, hyperlipidemia, diabetes, recent diagnosis of coronavirus who presents to the emergency department with shortness of breath found to be hypoxic Acute respiratory failure with hypoxia COVID-19 pneumonia Viral sepsis Continue-IV dexamethasone id consulted started on remdesivir monitor LFTs while on remdesivir continueSupplemental oxygen as needed continue supportive management Morbid obesity BMI 40.2 counnseled on weight loss Diabetes Newly diagnosed not yet placed on medication Hemoglobin A1c 6.9 ADA diet POC sugars will start metformin on discharge Hypertension Continue lisinopril, HCTZ Dyslipidemia Continue statin DVT prophylaxis- Lovenox
--- NOTE | 2020-07-16 13:19 | MHC.CM.PN ---
CM CONTACTED PT, WHO IS PRIMARILY [place] [employer], USING [employer] (#[id number]). PT REPORTS SHE LIVES AT HOME WITH HER S/O AND IS INDEPENDENT WITH ALL CARE AND MOBILITY. PT REPORTS SHE HAS NO SERVICES AND NO DME AND WORKS. PT HAS A HCP AND PCP ON FILE SHE CONFIRMS ACCURATE. PTS CURRENT DC PLAN IS HOME WITH NO SERVICES PTS S/O WILL TRANSPORT
[2020-07-16] MEDS: Enoxaparin Sodium 40 MG/0.4 ML SYRINGE SUBCUT (15:50)
[2020-07-16 15:54] LABS: Glucose, Whole Blood 180 mg/dL (60-115)
[2020-07-16 19:56] LABS: Glucose, Whole Blood 179 mg/dL (60-115)
[2020-07-16] MEDS: Insulin Lispro 100 UNIT/ML 3 ML VIAL SUBCUT (20:30)
[2020-07-16] MEDS: Atorvastatin Calcium 10 MG TABLET PO (20:30)
[2020-07-16] MEDS: Remdesivir 100 MG in 0.9 % Sodium Chloride 230 ML 115 MG IV (22:09)
[2020-07-17] VITALS (7 sets, daily range): BP systolic 109–153; BP diastolic 56–80; PULSE 68–80; RESP 15–19; TEMP 36.1–36.9; O2SAT 92–98; BMI 40.2
[2020-07-17 06:07] LABS: Alanine Aminotransferase 41 U/L (0-31); Albumin Level 3.4 g/dL (3.5-5.0); Alkaline Phosphatase 67 U/L (39-117); Aspartate Amino Transferase 43 U/L (5-31); Bilirubin Direct 0.2 mg/dL (0.0-0.5); Bilirubin Total 0.3 mg/dL (0.0-1.0); Total Protein 6.9 g/dL (6.5-8.0)
[2020-07-17 08:02] LABS: Glucose, Whole Blood 119 mg/dL (60-115)
--- NOTE | 2020-07-17 09:36 | MHC.CM.PN ---
Female 59 DX Covid+. DP home no services S.O will transport to home. LOS R/T IV Decadron and Remdesavir.
[2020-07-17] MEDS: hydroCHLOROthiazide 25 MG TABLET PO (10:05)
[2020-07-17] MEDS: Omeprazole 20 MG CAPSULE.DR PO (10:06)
[2020-07-17] MEDS: 0.9 % Sodium Chloride Flush 3 ML SYRINGE IVFLUSH ×3 (10:06→22:39)
[2020-07-17] MEDS: dexAMETHasone sod phosphate 4 MG/ML VIAL 6 MG IVPUSH (10:06)
[2020-07-17] MEDS: lisinopriL 5 MG TABLET PO (10:06)
[2020-07-17 11:51] LABS: Glucose, Whole Blood 148 mg/dL (60-115)
[2020-07-17] MEDS: Enoxaparin Sodium 40 MG/0.4 ML SYRINGE SUBCUT (15:17)
[2020-07-17] MEDS: Insulin Lispro 100 UNIT/ML 3 ML VIAL SUBCUT (17:23)
[2020-07-17 17:29] LABS: Glucose, Whole Blood 211 mg/dL (60-115)
--- NOTE | 2020-07-17 19:51 | P.PNIM_ITS ---
Subjective Subjective Date of Service: 07/18/20 Interval History: COVID infection Review of Systems Shortness of breath improving Physical Exam Vital Signs: Vital Signs: Last Vital Signs Temp 98 F 07/17/20 19:13 Pulse 80 07/17/20 19:13 Resp 15 07/17/20 19:13 BP 153/72 H 07/17/20 19:13 Pulse Ox 92 07/17/20 19:13 Body Mass Index 40.2 Physical exam: Cvs: rrr, [id number] , no murmur res: Breath sounds are diminished at bases, no rales or wheezing abd: no rebound or guarding ,nt, bs present. ext pulses present , no cyanosis neuro: axo3 , nonfocal. Objective Data Current Medications Generic Name Dose Route Start Last Admin Trade Name Freq PRN Reason Stop Dose Admin Acetaminophen 650 mg 07/14/20 14:25 Acetaminophen 325 Mg Tablet PO Q6H PRN Pain, Mild (Pain Scale 1-3) Atorvastatin Calcium 10 mg 07/14/20 21:00 07/16/20 20:30 Atorvastatin Calcium 10 Mg Tablet PO 10 mg BEDTIME RENÉ Administration Dexamethasone Sodium Phosphate 6 mg 07/15/20 09:00 07/17/20 10:06 Dexamethasone Sod Phosphate 4 Mg/Ml Vial IVPUSH 6 mg DAILY RENÉ Administration Docusate Sodium 100 mg 07/14/20 14:25 Docusate Sodium 100 Mg Capsule PO DAILY PRN Constipation Enoxaparin Sodium 40 mg 07/14/20 15:00 07/17/20 15:17 Enoxaparin Sodium 40 Mg/0.4 Ml Syringe SUBCUT 40 mg Q24H RENÉ Administration Hydrochlorothiazide 25 mg 07/15/20 09:00 07/17/20 10:05 Hydrochlorothiazide 25 Mg Tablet PO 25 mg DAILY RENÉ Administration Protocol Remdesivir 100 mg/ Sodium 230 mls @ 115 mls/hr 07/16/20 22:00 07/17/20 00:21 Chloride IV 07/19/20 23:59 Infused Q24H RENÉ Infusion Insulin Human Lispro 0 unit 07/16/20 21:00 07/17/20 17:23 Insulin Lispro 100 Unit/Ml 3 Ml Vial SUBCUT 4 unit QIDACHS RENÉ Administration Protocol Lisinopril 5 mg 07/15/20 09:00 07/17/20 10:06 Lisinopril 5 Mg Tablet PO 5 mg DAILY RENÉ Administration Protocol Omeprazole 20 mg 07/15/20 09:00 07/17/20 10:06 Omeprazole 20 Mg Capsule. PO 20 mg DAILY [facility] Administration Ondansetron HCl 4 mg 07/14/20 14:25 Ondansetron Hcl 4 Mg/2 Ml Vial IVPUSH Q8H PRN Nausea and Vomiting Pharmacy Consult 1 each 07/14/20 12:51 Consult Rx Perform Med Rec MISCELLANE ONCE PRN Consult order Sodium Chloride 3 ml 07/14/20 16:00 07/17/20 15:17 0.9 % Sodium Chloride Flush 3 Ml Syringe IVFLUSH 3 ml QSHIFT RENÉ Administration Labs CBC & Chem 7: 07/16/20 08:21 07/18/20 06:07 Microbiology Microbiology Results: Microbiology 07/14/20 09:59 Blood - Venous Blood Culture - Preliminary No growth after 48 hours. 07/14/20 09:42 Blood - Venous Blood Culture - Preliminary No growth after 48 hours. Assessment and Plan (1) Hypoxia: Status: Acute (2) Pneumonia due to COVID-19 virus: Problem details: Recent hypoxia as well as recent onset of COVID She has increasing oxygen requirements with oxygen now at 3 liters She has COVID pneumonia There are no signs of thromboembolism or opportunistic infection Status: Acute Assessment and Plan: 59-year-old female with a history of hypertension, hyperlipidemia, diabetes, recent diagnosis of coronavirus who presents to the emergency department with shortness of breath found to be hypoxic Acute respiratory failure with hypoxia COVID-19 pneumonia Viral sepsis Continue-IV dexamethasone id consulted started on remdesivir monitor LFTs while on remdesivir, LFTs slightly elevated discussed with ID continue remdesivir for now. day 2/4 continueSupplemental oxygen as needed continue supportive management Morbid obesity BMI 40.2 counnseled on weight loss Diabetes Newly diagnosed not yet placed on medication Hemoglobin A1c 6.9 ADA diet POC sugars will start metformin on discharge Hypertension Continue lisinopril, HCTZ Dyslipidemia Continue statin DVT prophylaxis- Lovenox
[2020-07-17] MEDS: Remdesivir 100 MG in 0.9 % Sodium Chloride 230 ML 115 MG IV (22:38)
[2020-07-17] MEDS: Atorvastatin Calcium 10 MG TABLET PO (22:39)
[2020-07-17 22:40] LABS: Glucose, Whole Blood 127 mg/dL (60-115)
[2020-07-18 04:00] VITALS: BP 124/70; BP 129/77; PULSE 74; RESP 20; TEMP 37; O2SAT 92
[2020-07-18 07:21] VITALS: BP 127/75; PULSE 63; RESP 18; TEMP 36.6; O2SAT 96
[2020-07-18 07:27] LABS: Alanine Aminotransferase 50 U/L (0-31); Albumin Level 3.3 g/dL (3.5-5.0); Alkaline Phosphatase 63 U/L (39-117); Aspartate Amino Transferase 39 U/L (5-31); Bilirubin Direct 0.2 mg/dL (0.0-0.5); Bilirubin Total 0.4 mg/dL (0.0-1.0); Total Protein 6.8 g/dL (6.5-8.0)
[2020-07-18 07:31] LABS: Anion Gap 13 (12-20); Blood Urea Nitrogen 24 mg/dL (9-16); Calcium 8.5 mg/dL (8.4-10.2); Carbon Dioxide 30 mmol/L (22-29); Chloride 98 mmol/L (96-108); Creatinine Clr Calc Pharmacy 97.9; Estimated Glomerular Filt Rate > 60; Glucose Random 122 mg/dL (60-115); Potassium 3.4 mmol/l (3.3-5.1); Sodium 138 mmol/L (135-145)
[2020-07-18 07:41] LABS: Glucose, Whole Blood 125 mg/dL (60-115)
[2020-07-18 11:09] VITALS: BP 116/62; PULSE 75; RESP 17; TEMP 36.8; O2SAT 92
[2020-07-18] MEDS: Omeprazole 20 MG CAPSULE.DR PO (11:38)
[2020-07-18] MEDS: lisinopriL 5 MG TABLET PO (11:38)
[2020-07-18] MEDS: hydroCHLOROthiazide 25 MG TABLET PO (11:38)
[2020-07-18] MEDS: dexAMETHasone sod phosphate 4 MG/ML VIAL 6 MG IVPUSH (11:38)
[2020-07-18 11:39] LABS: Glucose, Whole Blood 121 mg/dL (60-115)
[2020-07-18] MEDS: 0.9 % Sodium Chloride Flush 3 ML SYRINGE IVFLUSH ×3 (12:23→22:15)
[2020-07-18 15:10] VITALS: BP 133/69; PULSE 78; RESP 18; TEMP 36.5; O2SAT 90
[2020-07-18 16:23] LABS: Glucose, Whole Blood 196 mg/dL (60-115)
[2020-07-18] MEDS: Enoxaparin Sodium 40 MG/0.4 ML SYRINGE SUBCUT (16:48)
[2020-07-18] MEDS: Insulin Lispro 100 UNIT/ML 3 ML VIAL SUBCUT ×2 (16:49→20:45)
--- NOTE | 2020-07-18 17:39 | P.PNIM_ITS ---
Subjective Subjective Date of Service: 07/20/20 Interval History: COVID pneumonia Review of Systems Seems improving shortness of breath bradley denies any chest pain or abdominal pain or fever chills Physical Exam Vital Signs: Vital Signs: Last Vital Signs Temp 97.7 F 07/18/20 15:10 Pulse 78 07/18/20 15:10 Resp 18 07/18/20 15:10 BP 133/69 07/18/20 15:10 Pulse Ox 90 L 07/18/20 15:10 Body Mass Index 40.2 Physical exam: Cvs: rrr, [id number] , no murmur res: Air entry improving, no rales or wheezing abd: no rebound or guarding ,nt, bs present. ext pulses present , no cyanosis neuro: axo3 , nonfocal. Objective Data Current Medications Generic Name Dose Route Start Last Admin Trade Name Freq PRN Reason Stop Dose Admin Acetaminophen 650 mg 07/14/20 14:25 Acetaminophen 325 Mg Tablet PO Q6H PRN Pain, Mild (Pain Scale 1-3) Atorvastatin Calcium 10 mg 07/14/20 21:00 07/17/20 22:39 Atorvastatin Calcium 10 Mg Tablet PO 10 mg BEDTIME RENÉ Administration Dexamethasone Sodium Phosphate 6 mg 07/15/20 09:00 07/18/20 11:38 Dexamethasone Sod Phosphate 4 Mg/Ml Vial IVPUSH 6 mg DAILY RENÉ Administration Docusate Sodium 100 mg 07/14/20 14:25 Docusate Sodium 100 Mg Capsule PO DAILY PRN Constipation Enoxaparin Sodium 40 mg 07/14/20 15:00 07/18/20 16:48 Enoxaparin Sodium 40 Mg/0.4 Ml Syringe SUBCUT 40 mg Q24H RENÉ Administration Hydrochlorothiazide 25 mg 07/15/20 09:00 07/18/20 11:38 Hydrochlorothiazide 25 Mg Tablet PO 25 mg DAILY RENÉ Administration Protocol Remdesivir 100 mg/ Sodium 230 mls @ 115 mls/hr 07/16/20 22:00 07/18/20 01:04 Chloride IV 07/19/20 23:59 Infused Q24H RENÉ Infusion Insulin Human Lispro 0 unit 07/16/20 21:00 07/18/20 16:49 Insulin Lispro 100 Unit/Ml 3 Ml Vial SUBCUT 2 unit QIDACHS [facility] Administration Protocol Lisinopril 5 mg 07/15/20 09:00 07/18/20 11:38 Lisinopril 5 Mg Tablet PO 5 mg DAILY RENÉ Administration Protocol Omeprazole 20 mg 07/15/20 09:00 07/18/20 11:38 Omeprazole 20 Mg Capsule. PO 20 mg DAILY RENÉ Administration Ondansetron HCl 4 mg 07/14/20 14:25 Ondansetron Hcl 4 Mg/2 Ml Vial IVPUSH Q8H PRN Nausea and Vomiting Pharmacy Consult 1 each 07/14/20 12:51 Consult Rx Perform Med Rec MISCELLANE ONCE PRN Consult order Sodium Chloride 3 ml 07/14/20 16:00 07/18/20 16:54 0.9 % Sodium Chloride Flush 3 Ml Syringe IVFLUSH 3 ml QSHIFT [facility] Administration Labs CBC & Chem 7: 07/16/20 08:21 07/19/20 06:39 Microbiology Microbiology Results: Microbiology 07/14/20 09:59 Blood - Venous Blood Culture - Preliminary No growth after 48 hours. 07/14/20 09:42 Blood - Venous Blood Culture - Preliminary No growth after 48 hours. Assessment and Plan (1) Pneumonia due to COVID-19 virus: Status: Acute (2) Hypoxia: Status: Acute Assessment and Plan: 59-year-old female with a history of hypertension, hyperlipidemia, diabetes, recent diagnosis of coronavirus who presents to the emergency department with shortness of breath found to be hypoxic Acute respiratory failure with hypoxia COVID-19 pneumonia Viral sepsis Continue-IV dexamethasone id consulted started on remdesivir monitor LFTs while on remdesivir, LFTs slightly elevated discussed with ID continue remdesivir for now. day 2/4 continueSupplemental oxygen as needed continue supportive management Morbid obesity BMI 40.2 counnseled on weight loss Diabetes Newly diagnosed not yet placed on medication Hemoglobin A1c 6.9 ADA diet POC sugars will start metformin on discharge Hypertension Continue lisinopril, HCTZ Dyslipidemia Continue statin DVT prophylaxis- Lovenox
[2020-07-18 19:14] VITALS: BP 122/68; PULSE 98; RESP 18; TEMP 36.9; O2SAT 90
[2020-07-18 20:37] LABS: Glucose, Whole Blood 242 mg/dL (60-115)
[2020-07-18] MEDS: Atorvastatin Calcium 10 MG TABLET PO (20:40)
[2020-07-18] MEDS: Remdesivir 100 MG in 0.9 % Sodium Chloride 230 ML 115 MG IV (22:11)
[2020-07-18 23:33] VITALS: BP 112/57; PULSE 83; RESP 18; TEMP 37.1; O2SAT 92
[2020-07-19 03:19] VITALS: BP 115/65; PULSE 70; RESP 18; TEMP 36.7; O2SAT 97
[2020-07-19 07:36] LABS: Glucose, Whole Blood 132 mg/dL (60-115)
[2020-07-19 07:41] LABS: Alanine Aminotransferase 53 U/L (0-31); Albumin Level 3.4 g/dL (3.5-5.0); Alkaline Phosphatase 64 U/L (39-117); Aspartate Amino Transferase 34 U/L (5-31); Bilirubin Direct 0.2 mg/dL (0.0-0.5); Bilirubin Total 0.5 mg/dL (0.0-1.0); Total Protein 6.9 g/dL (6.5-8.0)
[2020-07-19 08:00] VITALS: BP 123/69; PULSE 83; RESP 18; TEMP 36.1; O2SAT 92
[2020-07-19] MEDS: Omeprazole 20 MG CAPSULE.DR PO (08:33)
[2020-07-19] MEDS: 0.9 % Sodium Chloride Flush 3 ML SYRINGE IVFLUSH (08:33)
[2020-07-19] MEDS: lisinopriL 5 MG TABLET PO (08:33)
[2020-07-19] MEDS: hydroCHLOROthiazide 25 MG TABLET PO (08:33)
[2020-07-19] MEDS: dexAMETHasone sod phosphate 4 MG/ML VIAL 6 MG IVPUSH (08:34)
[2020-07-19 08:44] LABS: Anion Gap 14 (12-20); Blood Urea Nitrogen 27 mg/dL (9-16); Calcium 8.3 mg/dL (8.4-10.2); Carbon Dioxide 28 mmol/L (22-29); Chloride 98 mmol/L (96-108); Creatinine Clr Calc Pharmacy 83.6; Estimated Glomerular Filt Rate > 60; Glucose Random 134 mg/dL (60-115); Potassium 3.6 mmol/l (3.3-5.1); Sodium 136 mmol/L (135-145)
[2020-07-19 10:55] LABS: Glucose, Whole Blood 196 mg/dL (60-115)
[2020-07-19 11:23] VITALS: BP 124/75; PULSE 72; RESP 18; TEMP 35.9; O2SAT 90
[2020-07-19] MEDS: Insulin Lispro 100 UNIT/ML 3 ML VIAL SUBCUT (11:36)
--- NOTE | 2020-07-19 11:39 | PM.DS ---
DS: Providers Provider Date of admission: 07/14/20 13:35 Primary care physician: Debora Escobar MD Consults: 07/14/20 13:35 Consult to Infectious Diseases Routine Consulting Provider: Kiley Perales Reason for consultation: COVID pneumonia Has provider been notified: No DS: Diagnosis Discharge Diagnosis (1) Pneumonia due to COVID-19 virus: Status: Acute (2) Hypoxia: Status: Acute DS: Medications Discharge Medications Home Medications: Home Medications Medication Instructions Recorded Confirmed hydrochlorothiazide 25 mg PO DAILY 07/14/20 07/14/20 lisinopril 5 mg PO DAILY 07/14/20 07/14/20 omeprazole [Prilosec] 20 mg PO DAILY 07/14/20 07/14/20 ondansetron [Zofran ODT] 4 mg PO Q8H PRN 07/14/20 07/14/20 simvastatin 20 mg PO BEDTIME 07/14/20 07/14/20 DS: Summary Hospital Course Hospital Course: 59-year-old female who presented to the emergency department today with shortness of breath. She was diagnosed with COVID-19 on July 07. She has had increasing shortness of breath and dyspnea on exertion since yesterday as well as associated cough. She also reports headache and body aches. She denies any sick contacts. In the emergency department she was hypoxic with oxygen saturation of 90% on room air. She is currently on 3 L of oxygen saturating 92%. Chest x-ray showed bilateral airspace disease. Inflammatory markers were elevated. She was given a dose of IV antibiotic and IV dexamethasone the decision was reached to admit her for further management. Pmhx: Diabetes Hyperlipidemia Hypertension Morbid obesity Hospital Course problem bradley section: Patient was started on dexamethasone as well as remdesivir, supportive care with oxygen: Patient shortness of breath seems improved significantly now off oxygen and discussed with the Infectious Disease since patient improved and received 3/4 days of remdesivir-will stop remdesivir now. Patient will go home on dexamethasone 8 mg po to complete total course of 10 days , she already received 5 days of dexamethasone. Mild elevated LFTs-seems improving,? obesity vs covid related. Monitor LFTs with PCP and further management as per PCP. Patient was advised self isolation for 2 weeks. Above management discussed with the patient in detail length she understand and in agreement with the above plan, time spent 50 minutes and 50% time spent on counseling. Significant findings: As above. Procedures performed: None. Treatment and response: As above. Complications: None. Time Spent with Patient Time attestation: Total time spent providing and/or coordinating discharge services: Physical Exam Vital Signs: Vital Signs: Last Vital Signs Temp 96.6 F L 07/19/20 11:23 Pulse 72 07/19/20 11:23 Resp 18 07/19/20 11:23 BP 124/75 07/19/20 11:23 Pulse Ox 90 L 07/19/20 11:23 Body Mass Index 40.2 Physical exam: Constitutional: Patient not in distress. Eyes anicteric, no discharge. Cvs: rrr, [id number] , no murmur res: clear to auscultation ,no rhonchii or wheezing abd: no rebound or guarding ,nt, bs present. ext pulses present , no cyanosis neuro: axo3 , nonfocal. DS: Data Data Completed and Pending Labs on day of discharge: 07/14/20 UA CC w/rflx Micro + Cult Stat 07/14/20 09:32 XR chest 1V Stat 0.9 % Sodium Chloride [Ns] 1,000 ml IV 999 mls/hr Azithromycin [Zithromax] 500 mg 0.9 % Sodium Chloride [Ns] 250 ml IV ONCE cefTRIAXone sodium [Rocephin] 1 gm 0.9 % Sodium Chloride [Ns] 100 ml IV ONCE 07/14/20 09:41 C Reactive Protein Stat Complete Blood Count Auto Diff Stat Comprehensive Met. Panel Stat D Dimer Stat Ferritin Stat Hemoglobin A1c Stat Lactate Dehydrogenase Stat Lipase Stat Partial Thromboplastin Time Stat Prothrombin Time INR Stat 07/14/20 09:48 cefTRIAXone sodium [Rocephin] 1 gm .ROUTE .STK-MED ONE 07/14/20 09:59 Lactic Acid Stat 07/14/20 10:01 Azithromycin [Zithromax] 500 mg IV .STK-MED ONE 07/14/20 12:30 dexAMETHasone sod phosphate [Decadron] 10 mg IVPUSH ONCE ONE 07/14/20 12:50 Add Laboratory Test Stat 07/14/20 13:29 Transfer Order Routine 07/14/20 14:03 Add Laboratory Test Stat 07/14/20 14:49 COVID-19 ID NOW (Hansen) Stat 07/14/20 16:34 Glucose, Whole Blood Routine 07/14/20 21:52 Glucose, Whole Blood Routine 07/14/20 23:08 guaiFENesin 100 MG/5 ML [Robitussin 100 MG/5 ML] 5 ml PO ONCE ONE 07/15/20 07:30 Insulin Lispro [Humalog] See Protocol SUBCUT QIDACHS 07/15/20 07:41 Glucose, Whole Blood Routine 07/15/20 11:14 Glucose, Whole Blood Routine 07/15/20 16:22 Glucose, Whole Blood Routine 07/15/20 18:20 Blood Urea Nitrogen Stat Complete Blood Count Auto Diff Stat Creatinine Stat Electrolytes Stat Liver Panel Stat Partial Thromboplastin Time Stat Prothrombin Time INR Stat 07/15/20 21:15 Glucose, Whole Blood Routine 07/15/20 22:00 Remdesivir [Velkury] 200 mg 0.9 % Sodium Chloride [Ns] 210 ml IV ONCE 07/16/20 07:40 Glucose, Whole Blood Routine 07/16/20 08:21 Blood Urea Nitrogen Routine Complete Blood Count Auto Diff Routine Creatinine Routine Electrolytes Routine Liver Panel Routine Liver Panel Routine Partial Thromboplastin Time Routine Prothrombin Time INR Routine SLIDE REVIEW Routine 07/16/20 11:55 Glucose, Whole Blood Routine 07/16/20 15:49 Glucose, Whole Blood Routine 07/16/20 19:51 Glucose, Whole Blood Routine 07/17/20 05:06 Liver Panel DAILY@0600 07/17/20 07:22 Glucose, Whole Blood Routine 07/17/20 11:21 Glucose, Whole Blood Routine 07/17/20 17:16 Glucose, Whole Blood Routine 07/17/20 22:37 Glucose, Whole Blood Routine 07/18/20 06:07 Basic Metabolic Panel DAILY Liver Panel DAILY@0600 07/18/20 07:23 Glucose, Whole Blood Routine 07/18/20 11:12 Glucose, Whole Blood Routine 07/18/20 16:18 Glucose, Whole Blood Routine 07/18/20 20:33 Glucose, Whole Blood Routine 07/19/20 06:39 Basic Metabolic Panel Routine Liver Panel DAILY@0600 07/19/20 07:30 Glucose, Whole Blood Routine 07/19/20 10:52 Glucose, Whole Blood Routine Laboratory Last Values WBC 6.9 X10*3/uL (4.8-10.8) 07/16/20 08:21 RBC 4.83 X10*6/uL (4.20-5.50) 07/16/20 08:21 Hgb 12.1 g/dl (12.0-16.0) 07/16/20 08:21 Hct 38.8 % (37-47) 07/16/20 08:21 MCV 80.3 fL (80-98) 07/16/20 08:21 MCH 25.1 pg (27.0-33.0) L 07/16/20 08: MCHC 31.2 g/dl (31.0-35.0) 07/16/20 08:21 RDW 14.7 % (11.0-16.0) 07/16/20 08:21 Plt Count 373 X10*3/uL (160-400) 07/16/20 08:21 MPV 10.3 fL (9.4-12.3) 07/16/20 08:21 Immature Gran % (Auto) 0.9 % (0.0-0.4) H 07/16/20 08: Neut % (Auto) 66.5 % (45-73) 07/16/20 08:21 Lymph % (Auto) 23.3 % (20-40) 07/16/20 08:21 [place] % (Auto) 9.3 % (2-11) 07/16/20 08: Eos % (Auto) 0.0 % (0-4) 07/16/20 08:21 Baso % (Auto) 0.0 % (0-2) 07/16/20 08: Lymph # (Auto) 1.6 X10*3/uL (1.2-4.9) 07/16/20 08:21 [place] # (Auto) 0.6 X10*3/uL (0.1-1.2) 07/16/20 08:21 Eos # (Auto) 0.0 X10*3/uL (0.0-0.4) 07/16/20 08:21 Baso # (Auto) 0.0 X10*3/uL (0.0-0.2) 07/16/20 08:21 Abs Immat Gran (auto) 0.06 X10*3/uL (0.00-0.03) H 07/16/20 08:21 Absolute Neuts (auto) 4.6 X10*3/uL (2.0-8.3) 07/16/20 08:21 Absolute Nucleated RBC 0.000 X10*3/uL (0.0-0.012) 07/16/20 08:21 Nucleated RBC % (auto) 0.0 /100WBC (0.0-0.2) 07/16/20 08:21 Smear Tech's Comments VERIFIED 07/16/20 08:21 PT 13.0 SEC (10.8-13.0) 07/16/20 08:21 INR 1.1 (0.9-1.1) 07/16/20 08:21 APTT 26.6 SEC (24.1-38.0) 07/16/20 08:21 D-Dimer 809 NG/ML 07/14/20 09:41 Sodium 136 mmol/L (135-145) 07/19/20 06:39 Potassium 3.6 mmol/l (3.3-5.1) 07/19/20 06:39 Chloride 98 mmol/L (96-108) 07/19/20 06:39 Carbon Dioxide 28 mmol/L (22-29) 07/19/20 06:39 Anion Gap 14 (-20) 07/19/20 06:39 BUN 27 mg/dL (9-16) H 07/19/20 06:39 Creatinine 0.82 mg/dL (0.5-1.4) 07/19/20 06:39 Estim Creat Clear Calc 83.6 07/19/20 06:39 Estimated GFR > 60 07/19/20 06:39 POC Glucose 196 mg/dL (60-115) H 07/19/20 10:52 Random Glucose 134 mg/dL (60-115) H 07/19/20 06:39 Estimat Average Glucose 151 mg/dL 07/14/20 09:41 Hemoglobin A1c % 6.9 % 07/14/20 09:41 Lactic Acid 1.4 mmol/L (0.5-2.0) 07/14/20 09:59 Calcium 8.3 mg/dL (8.4-10.2) L 07/19/20 06:39 Ferritin 1228 ng/mL (10-250) H 07/14/20 09:41 Total Bilirubin 0.5 mg/dL (0.0-1.0) 07/19/20 06:39 Direct Bilirubin 0.2 mg/dL (0.0-0.5) 07/19/20 06:39 AST 34 U/L (5-31) H 07/19/20 06:39 ALT 53 U/L (0-31) H 07/19/20 06:39 Alkaline Phosphatase 64 U/L (39-117) 07/19/20 06:39 Lactate Dehydrogenase 478 U/L (122-220) H 07/14/20 09:41 C-Reactive Protein 6.77 mg/dL (< or = 0.50) H 07/14/20 09:41 Total Protein 6.9 g/dL (6.5-8.0) 07/19/20 06:39 Albumin 3.4 g/dL (3.5-5.0) L 07/19/20 06:39 Lipase 42 U/L (8-78) 07/14/20 09:41 Urine Color YELLOW 07/14/20 Unknown Urine Appearance HAZY 07/14/20 Unknown Urine pH 6.5 (5.0-8.0) 07/14/20 Unknown Ur Specific [place] 1.015 (1.005-1.025) 07/14/20 Unknown Urine Protein NEG MG/DL (NEG-TRACE) 07/14/20 Unknown Urine Glucose (UA) NEG MG/DL (NEG) 07/14/20 Unknown Urine Ketones NEG MG/DL (NEG) 07/14/20 Unknown Urine Blood NEG (NEG) 07/14/20 Unknown Urine Nitrite NEG (NEG) 07/14/20 Unknown Ur Leukocyte Esterase NEG (NEG) 07/14/20 Unknown COVID-19 (RIKY) Positive (Negative) A 07/14/20 14:49 COVID-19 Clin Com See Note 07/14/20 14:49 Preliminary micro results at discharge 07/14/20 09:59 Blood Culture - Preliminary Blood - Venous No growth after 48 hours. 07/14/20 09:42 Blood Culture - Preliminary Blood - Venous No growth after 48 hours. Discharge Plan Discharge Patient Disposition: Home, Self-Care Referrals: Debora Escobar MD [Primary Care Provider] - Discharge Medications: New dexamethasone 4 mg tablet 8 mg PO DAILY Qty: 10 RF: 0 Continued simvastatin 20 mg Tablet 20 mg PO BEDTIME RF: 0 omeprazole 20 mg Capsule,Delayed Release(Dr/Ec) 20 mg PO DAILY RF: 0 lisinopril 5 mg Tablet 5 mg PO DAILY RF: 0 hydrochlorothiazide 25 mg Tablet 25 mg PO DAILY RF: 0 ondansetron 4 mg Tablet,Disintegrating 4 mg PO Q8H PRN (Reason: Nausea And Vomiting) RF: 0 Discharge Orders: Discharge Order (Routine); Ordered 07/19/20 Ordered By: Diaz Palacios Diet: advance to usual diet Activity on Discharge: As tolerated Discharge Date/Time: 07/19/20 13:46 Other Ambulatory Orders: Liver Panel (Routine) Timeframe: 1 Week Facility: [facility] - Location: Laboratory Ordered By: Diaz Palacios Visit Report Forms: Patient Portal Discharge page Care Plan Goals: Patient found to have COVID pneumonia: Which was treated with remdesivir, dexamethasone and supportive oxygen patient significantly improved and off oxygen now saturating in 90s, patient was advised to have self-isolation 2 weeks. Given dexamethasone prescription also. LFT probably related to obesity ,question COVID might also contributing: Monitor LFTs and further management as per PCP outpatient. Health Concerns: As above. Plan of Treatment: As above.
--- NOTE | 2020-07-19 12:17 | MHC.CM.PN ---
FEMALE 59 COVID+ IS DC TODAY TO HOME NO SERVICES. [facility] IS PROVIDING TRANSPORTATION.
== END 2020-07-19 13:46 | disposition home or self-care (01) | DRG 137 ==
LOC: HO.ED 12:49 → HO.IMC 14:01
PROVIDERS: Internal Medicine; Physician Assistant Medical; Admitting Provider Internal Medicine; Emergency Provider Emergency Medicine Emergency Medical Services; PCP Internal Medicine; Visit Provider Internal Medicine
DX: U07.1 COVID-19 (principal); J12.89 Other viral pneumonia; E66.01 Morbid (severe) obesity due to excess calories; E78.5 Hyperlipidemia, unspecified; I10 Essential (primary) hypertension; E11.9 Type 2 diabetes mellitus without complications; Z68.41 Body mass index [BMI] 40.0-44.9, adult; Z79.899 Other long term (current) drug therapy
CPT/HCPCS: 36415; 71045; 80048; 80051; 80053; 80076; 81003; 82565; 82728; 82947; 83036; 83605; 83615; 83690; 84520; 85025; 85379; 85610; 85730; 86140; 87040; 87635; 96365; 96366; 96367; 96375; 99285; J0456; J0696; J1100; J1650; J3490

== ENCOUNTER 2020-07-26 10:46 | Outpatient (REF) | payer OTHER, SELFPAY ==
[2020-07-26 12:26] LABS: Alanine Aminotransferase 64 U/L (0-31); Albumin Level 3.5 g/dL (3.5-5.0); Alkaline Phosphatase 92 U/L (39-117); Aspartate Amino Transferase 31 U/L (5-31); Bilirubin Direct 0.2 mg/dL (0.0-0.5); Bilirubin Total 0.5 mg/dL (0.0-1.0); Total Protein 6.7 g/dL (6.5-8.0)
== END 2020-07-26 10:47 | disposition home or self-care (01) ==
LOC: HO.LAB 10:46
PROVIDERS: Visit Provider Internal Medicine
DX: R74.8 Abnormal levels of other serum enzymes (principal)
CPT/HCPCS: 80076